=== PATIENT | male | born 1960 | race Asian ===

== ENCOUNTER 2022-01-13 14:31 | Emergency (ER) | payer SELFPAY ==
[~2022-01-13] VITALS: Ht 167.6 cm; Wt 72.6 kg
[2022-01-13 14:33] VITALS: BP 140/82
--- NOTE | 2022-01-13 14:33 | NUR ---
BIBA to bed 10
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
--- NOTE | 2022-01-13 14:36 | NUR ---
Keith James at bedside
--- NOTE | 2022-01-13 14:48 | NUR ---
[facility]
--- NOTE | 2022-01-13 14:55 | NUR ---
Patient returned from CT by mely.
--- NOTE | 2022-01-13 15:10 | NUR ---
Lab at bedside
[2022-01-13 15:21] LABS: BASOPHILS # (AUTO) 0.1 K/uL (0.00-0.22); BASOPHILS % (AUTO) 0.8 % (0.0-2.0); EOSINOPHILS # (AUTO) 0.3 K/uL (0-0.4); EOSINOPHILS % (AUTO) 1.8 % (0.0-4.0); HEMATOCRIT 43.9 % (36-52); HEMOGLOBIN 14.5 g/dL (12.0-18.0); LYMPHOCYTES # (AUTO) 1.2 K/uL (2.0-11.5); LYMPHOCYTES % (AUTO) 7.7 % (20.5-51.1); MEAN CORPUSCULAR HEMOGLOBIN 31 pg (27-31); MEAN CORPUSCULAR HGB CONC 33 g/dL (33-37); MEAN CORPUSCULAR VOLUME 92.1 fL (80-94); MONOCYTES # (AUTO) 0.6 K/uL (0.8-1.0); MONOCYTES % (AUTO) 3.9 % (1.7-9.3); NEUTROPHILS # (AUTO) 13.5 K/uL (1.8-7.7); NEUTROPHILS % (AUTO) 85.8 % (42.2-75.2); PLATELET COUNT (AUTO) 246 K/uL (140-450); RED BLOOD CELL COUNT(AUTO) 4.76 MIL/uL (4.20-6.10); RED CELL DISTRIBUTION WIDTH 14.1 % (11.6-13.7); WHITE BLOOD COUNT (AUTO) 15.8 K/uL (4.8-10.8)
--- NOTE | 2022-01-13 15:30 | NUR ---
Patient resting in semi-fowlers positoin with both eyes closed. event marketing representative in place. VSS. RR even/unlabored. Bed locked in lowest position, side rails x1.
[2022-01-13 15:36] LABS: ALBUMIN 3.9 g/dL (3.4-5.0); ANION GAP 8.3 (8-16); CARBON DIOXIDE 31.4 mmol/L (21-32); CREATININE 1.7 mg/dL (0.6-1.3); POTASSIUM 3.7 mmol/L (3.5-5.1); TOTAL BILIRUBIN 0.5 mg/dL (0.0-1.0)
[2022-01-13] MEDS ORDERED: NACL 0.9% 500 ML IV ONE (15:45)
--- NOTE | 2022-01-13 16:55 | NUR ---
Lab at bedside
[2022-01-13 17:18] LABS: ANION GAP 8.5 (8-16); CREATININE 1.5 mg/dL (0.6-1.3); POTASSIUM 3.5 mmol/L (3.5-5.1)
[2022-01-13 18:08] VITALS: BP 132/77
--- NOTE | 2022-01-13 18:23 | NUR ---
Patient discharged with v/s stable. Written and verbal after care instructions given and explained. Patient verbalized understanding. Ambulatory with steady gait. All questions addressed prior to discharge. Advised to follow up with PMD.
== END 2022-01-13 18:23 | disposition home or self-care (01) ==
LOC: MED 14:31
DX: N17.9 Acute kidney failure, unspecified (principal); E11.649 Type 2 diabetes mellitus with hypoglycemia without coma; E86.0 Dehydration
CPT/HCPCS: 36415; 70450; 80048; 80053; 85025; 99284; J7030